=== PATIENT | male | born 1945 | race Caucasian/White ===

== ENCOUNTER 2019-03-09 06:29 | Inpatient (IN) ==
--- NOTE | 2019-02-16 14:08 | PAT Medication Instructions ---
Medication Instructions Date of Service February 16, 2019 Home Medications carvedilol 3.125 mg PO BID furosemide 40 mg PO NEEDED tramadol-acetaminophen 1 - 2 tab PO Q6H NEEDED DO NOT take the morning of surgery furosemide 40 mg PO NEEDED Take morning of surgery With a small sip of water, OTHERWISE NOTHING TO EAT OR DRINK AFTER MIDNIGHT: carvedilol 3.125 mg PO BID tramadol-acetaminophen 1 - 2 tab PO Q6H NEEDED (if needed; STOP four hours before surgery) Take evening before surgery carvedilol 3.125 mg PO BID tramadol-acetaminophen 1 - 2 tab PO Q6H NEEDED (if needed) Other Notes If you have any questions please call us at [phone] or [phone] or [phone] or [phone]
--- NOTE | 2019-02-16 14:17 | Anesthesiology Consultation ---
Date of Service February 16, 2019 Assessment & Plan (1) Encounter for pre-operative examination: -No previous anesthesia records available -Patient had EKG for PAT and was found to be in new onset A. Fib. Was already rate controlled at 75bpm and is on a beta ted, but is not anticoagulated. 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 Dr. Roe's office was contacted and they asked that patient go to the ER for further evaluation and then come to his appointment tomorrow. Patient was agreeable to this plan. EKG was faxed to cardiology's office. Surgeon's office was notified of situation. Events report was filled out by Janessa Zhang PA-C, who had called Dr. Roe's office. Patient was seen in the ER and placed on Eliquis BID and asked to follow up with Dr. Roe's office 02/17 as scheduled for further instructions re:anticoagulation. (See below) - Patient was noted to have LLE cellulitis at PCP visit on 03/04. Patient was started on Cephalexin and cleared for surgery. This will need to be evaluated morning of surgery. Chart Review Chart Review: Acceptable Risk for Surgery and Patient seen in Pre Admission Testing Consults Requested medical & cardiac (Dr. Roe (02/17) & Dr. Macias (03/04)) Patient was seen by cardiology on 02/17 for new onset a. fib and cardiac pre- operative evaluation. Patient had a negative pharmacologic stress test on 02/24 for further evaluation and it was also noted that he remained in a. fib. Patient is opting to proceed with surgery and cardio is agreeable and plans for cardioversion in April. Patient is placed on ASA daily and asked "Please re-institute Eliquis therapy as soon as safe postoperatively." They also recommended that he continue his beta ted throughout perioperative period. Patient was seen by PCP's office on 03/04 for preoperative evaluation. Per note from this visit, "Patient cleared to proceed with scheduled orthopedic procedure with Dr. Hernandez. Medical problems stable. Teaching & Discussion Pre-Anesthesia Teaching/Discussion Notes: Instructed NPO after midnight before s urgery, except medications with 15 cc of water. Medication instructions provided according to the PAT guidelines. History Surgery Operation Date: 03/09/19 07:15 Proposed Procedures p Right Anterior Total Hip Arthroplasty - Jordan Hernandez, Height/Weight Height: 6 ft 1 in Weight: 111.8 kg Allergies Allergy/AdvReac Type Severity Reaction Status Date / Time Sulfa (Sulfonamide Allergy Mild swelling Verified 02/16/19 18:12 Antibiotics) at site Medications Home Medications Medication Instructions Recorded Confirmed Last Taken carvedilol 3.125 mg PO BID 02/15/19 02/16/19 02/16/19 furosemide 40 mg PO UD PRN 02/15/19 02/16/19 02/15/19 tramadol-acetaminophen 1 - 2 tab PO Q6H PRN 02/15/19 02/16/19 02/16/19 Past Medical History Medical History Aorta aneurysm x [address] Neida Roe (02/17 for clearance for surgery) takes carvediolol Hearing deficit Heartburn ocas Osteoarthritis Exercise / Class Metabolic Activity III < 4 Walking/Shop/Light housework (Limited due to hip pain. Does walk around as much as possible. Able to climb stairs one at a time. Denies CP or SOB. ) Past Surgical History Surgical History Hx of colonoscopy x 3 Past Anesthesia History No Hx of Anesthesia Complications and No Family Hx of Anesthesia Complications History of PONV No Hx of PONV and No Hx of Motion Sickness Social History Smoking Status: Never smoker Do You Dip or Chew Tobacco: No Hx Alcohol Use: Yes alcohol intake frequency: holidays/special occasions only Hx Substance Use: No Review of Systems Patient denies chest pain, shortness of breath, dyspnea on exertion, cough, wheezing, palpitations. +Joint Pain (Hip, right knee, hands) +Acid Reflux (very rare - Takes TUMS) Physical Exam Vital Signs BP: 128/80 P: 83 R: 16 T: 98.5 SPO2: 97% on RA Constitutional + obese ENMT Mouth: + dentures (Full set upper and lower) and + edentulous Thyromental Distance: > or= 3.5 Finger Breadths (4) Mallampati Class: II Bilateral hearing aides Neck normal visual inspection and trachea midline; neck extension not limited Respiratory normal respiratory effort Auscultation: lungs clear to auscultation bilaterally Cardiovascular Rate/Rhythm: + abnormal rate and + abnormal rhythm Heart Sounds: no murmur Vessels: no carotid bruit Irregularly, irregular rate and rhythm Neurologic moves all extremities Psychiatric Orientation: alert and oriented x 3 Testing Laboratory Results 02/16/19 15:00 02/16/19 15:00 PT 11.3 Seconds (9.0-12.0) 02/16/19 15:00 INR 1.1 (0.9-1.1) 02/16/19 15:00 APTT 26.1 Seconds (21.0-31.0) 02/16/19 15:00 Hemoglobin A1c 5.9 % (4.5-5.6) H 02/16/19 15:00 Urine Color Dark Yellow 02/16/19 15:00 Urine Appearance Clear (Clear) 02/16/19 15:00 Urine pH 7.5 (4.5-7.5) 02/16/19 15:00 Ur Specific Canones 1.024 (1.000-1.030) 02/16/19 15:00 Urine Protein Negative (Negative) 02/16/19 15:00 Urine Glucose (UA) Negative (Negative) 02/16/19 15:00 Urine Ketones Negative (Negative) 02/16/19 15:00 Urine Nitrite Negative (Negative) 02/16/19 15:00 Ur Leukocyte Esterase Negative (Negative) 02/16/19 15:00 Blood Type O Positive 02/16/19 15:00 Antibody Screen NEGATIVE 02/16/19 15:00 Electrocardiogram Date: 02/16/19 Findings: + AFIB @ (75) Left axis deviation Incomplete right bundle branch block Minimal voltage criteria for LVH, may be normal variant Nonspecific T wave abnormality Chest X-Ray Date: 02/16/19 FINDINGS: Atherosclerosis of the aortic arch. Cardiac silhouette enlarged. Mild pulmonary vascular prominence. No focal opacity. No large effusion or pneumothorax. Osseous structures normal. IMPRESSION: 1. Cardiomegaly with mild if any volume overload. No advanced congestive change or chino pulmonary edema. Echocardiogram Date: 03/20/17 EF: 55-60% Normal left ventricular wall motion and EF estimated in the range of 55-60% Dilatation of the left atrium Left ventricular hypertrophy Dense sclerotic changes involving both aortic and mitral valve leaflets as well as mitral annular calcification Moderate aortic valvular insufficiency Aneurysmal dilatation of the ascending aorta Stress Test Date: 02/24/19 Type: nuclear (Lexiscan) Resting EF: 46% Normal myocardial perfusion SPECT images without evidence for pharmacologically induced ischemia Low normal LVEF post stress estimated in the range of 42% (technically a difficult study secondary to gaiting problems in atrial fibrillation).
[2019-02-16 15:56] LABS: Basophils # (auto) 0.02 K/uL (0-0.2); Basophils % (auto) 0.4 %; Eosinophils # (auto) 0.06 K/uL (0-0.5); Eosinophils % (auto) 1.1 %; Hematocrit (blood only) 36.4 % (42-52); Hemoglobin 12.1 g/dL (14.0-18.0); Immature Granulocytes # (auto) 0.01 K/uL (0.00-0.02); Immature Granulocytes % (auto) 0.2 %; Lymphocytes % (auto) 18.1 %; Mean Corpuscular Hgb Conc 33.2 g/dL (32-36); Mean Platelet Volume 9.4 fL (7.4-10.4); Monocytes # (auto) 0.54 K/uL (0.11-0.59); Monocytes % (auto) 9.8 %; Neutrophils # (auto) 3.89 K/uL (1.4-6.5); Neutrophils % (auto) 70.4 %; Platelet Count 248 K/uL (130-400); RDW Coefficient of Variation 14.4 % (11.5-14.5); RDW Standard Deviation 46.9 fL (36.4-46.3); Red Blood Count 4.09 M/uL (4.7-6.1); White Blood Count 5.52 K/uL (4.8-10.8)
[2019-02-16 16:00] LABS: Appearance Urine Clear (Clear); Bilirubin Urine Negative (Negative); Blood Urine Negative (Negative); Color Urine Dark Yellow; Glucose Urine UA Negative (Negative); Ketones Urine Negative (Negative); Leukocyte Esterase Urine Negative (Negative); Nitrite Urine Negative (Negative); Protein Urine Negative (Negative); Specific Gravity Urine 1.024 (1.000-1.030); Urobilinogen Urine Negative (Negative); pH Urine 7.5 (4.5-7.5)
[2019-02-16 16:04] LABS: Albumin Level 3.6 gm/dl (3.4-5.0); BUN Creatinine Ratio 20.3 (10-20); Calcium 8.7 mg/dl (8.5-10.1); Creatinine Clr Calc Pharmacy 121.5 ml/min; Est GFR (Non-African American) 93.2; Potassium 3.9 mmol/L (3.5-5.1)
[2019-02-16 16:08] LABS: INR 1.1 (0.9-1.1); Partial Thromboplastin Time 26.1 Seconds (21.0-31.0); Prothrombin Time 11.3 Seconds (9.0-12.0)
[2019-02-17 05:45] LABS: Estimated Average Glucose 123 mg/dl; Hemoglobin A1C 5.9 % (4.5-5.6)
--- NOTE | 2019-03-08 13:01 | History & Physical Report ---
Date of Service March 08, 2019 Assessment & Plan (1) Degenerative joint disease of right hip: I have indicated the patient for right anterior total hip replacement. The risks, benefits and complications of surgery were explained to the patient which include but not limited to infection, acute blood loss, DVT/PE, injury to nerves, vessels, bone, soft tissue, arthrofibrosis, chronic pain, failure of the prosthesis, hip dislocation, leg length discrepancy, need for additional surgery, cardiac and pulmonary events and . The patient wished to proceed with surgery and informed consent was obtained at this time. We will plan for ASA BID post-operatively for DVT prophylaxis. Upon discharge the patient will be discharged home with home health services. Appropriate clearances by PCP and cardio were obtained. History of Present Illness Chief Complaint: Right hip pain/djd Primary Care Provider: Maulik Macias The patient is a 74 year old male who presents with complaints of severe right hip pain and DJD. The patient has failed outpatient conservative treatments to this point which included NSAIDs, IA corticosteroid injection, home exercise/walking program. The patient's pain and limited function have progressed to the point where they severely hinder their activities of daily living and they no longer tolerate exercise programs. They are requesting to proceed with total hip replacement surgery. Allergies Allergy/AdvReac Type Severity Reaction Status Date / Time Sulfa (Sulfonamide Allergy Mild swelling Verified 02/16/19 18:12 Antibiotics) at site Home Medications Home Medications Medication Instructions Recorded Confirmed Type carvedilol 3.125 mg PO BID 02/15/19 02/16/19 History furosemide 40 mg PO UD PRN 02/15/19 02/16/19 History tramadol-acetaminophen 1 - 2 tab PO Q6H PRN 02/15/19 02/16/19 History Past Med/Surg History Medical History Aorta aneurysm x [address] 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 Constitutional: WD/WN, vitals as above Eyes: PERRL, conjunctivae normal, anicteric sclerae ENMT: external ear and nose normal, oropharynx normal Neck: trachea midline, no thyromegaly Respiratory: normal respiratory effort, lungs clear to auscultation Cardiovascular: RRR, no murmur, no edema Gastrointestinal (Abdomen): normal bowel sounds, soft, nontender, no hepatosplenomegaly Musculoskeletal: no cyanosis or clubbing, extremities motor strength 5/5 Skin: no rashes, warm and dry Neurologic: patellar DTR's 2+ bilat, sensation intact Psychiatric: A+Ox3, euthymic affect Lymphatic: no cervical or axillary lymphadenopathy Results & Data Diagnostic Findings Multiple views of the hip demonstrates severe DJD with complete loss of the joint space. +osteophytes, +sclerosis, +subchondral cysts.
[~2019-03-09 06:29] MED LIST: ACETAMINOPHEN 500 MG TAB PO SCH; BUPIVACAINE 0.5 % 5 MG/1 ML PF 10ML VIAL ONE; CEFAZOLIN 2000MG 2,000 MG/15 ML SYR IV SCH; CeleBREX 200 MG CAP PO SCH; FAMOTIDINE 20 MG TAB PO SCH; GABAPENTIN 300 MG CAP PO SCH; LR 500ML BOLUS, THEN 15ML/HR IV SCH; METOCLOPRAMIDE HCL 10 MG TABLET PO SCH; ROPIVACAINE 0.5% HCL/PF 150 MG, BUPIVACAINE 0.5% MPF 30 ML, EPINEPHrine 30MG/30ML (OR U... INSTIL SCH; TRANEXAMIC ACID 1,000 MG **IV Pre-op IV SCH; dexAMETHasone 4 MG TAB PO SCH
[2019-03-09] MEDS ORDERED: TRANEXAMIC ACID 1,000 MG **IV Intra-op IV SCH (06:30)
--- NOTE | 2019-03-09 07:10 | History & Physical Bridge Note ---
Date of Service March 09, 2019 History & Physical Bridge Note I have examined the patient, reviewed the History & Physical and in the interval since the performance of the History & Physical I have noted the following changes of clinical significance: no changes noted
[2019-03-09] MEDS ORDERED: ORTHO JOINT ANESTHETIC ONE (09:07)
[2019-03-09] MEDS ORDERED: BACITRACIN INJ 50,000 UNIT VIAL ONE (09:07)
[2019-03-09] MEDS ORDERED: MIDAZOLAM HCL 1 MG/ML 2ML VIAL ONE ×2 (09:15)
[2019-03-09] MEDS ORDERED: PROPOFOL IV EMULSION 10 MG/ML 20 ML VIAL IV ONE (09:45)
[2019-03-09] MEDS ORDERED: KETAMINE HCL INJ 50 MG/ML 10 ML VIAL ONE (09:46)
[2019-03-09] MEDS ORDERED: fentaNYL citrate 100 MCG/2 ML VIAL ONE (10:19)
--- NOTE | 2019-03-09 11:27 | Post Operative Brief Note ---
Immediate Post Op Note v1 Date of Surgery March 09, 2019 Pre & Post Diagnosis Operation Date: 03/09/19 09:15 Pre-Op Diagnosis: RIGHT HIP OSTEOARTHRITIS Post-Op Diagnosis: RIGHT HIP OSTEOARTHRITIS Procedure Operation Date: 03/09/19 09:15 Actual Procedures p Right Anterior Total Hip Arthroplasty(Right) - Jordan Hernandez DO Surgeon Jordan Hernandez DO Manager Engagement Gabriel Ahmadi Estimated Blood Loss 125 Findings Consistent with Post-Op Diagnosis Fluids 800 cc LR Specimens femoral head Anesthesia Type General Complications none Disposition Disposition: Recovery Room Overlapping Procedure I was present for: the critical portions of procedure. I was immediately available: during the entire case. Back up surgeon: was not required during procedure.
--- NOTE | 2019-03-09 11:48 | Operative Report ---
Post Operative Report Pre & Post Diagnosis Operation Date: 03/09/19 09:15 Pre-Op Diagnosis: RIGHT HIP OSTEOARTHRITIS Post-Op Diagnosis: RIGHT HIP OSTEOARTHRITIS Procedure Operation Date: 03/09/19 09:15 Actual Procedures p Right Anterior Total Hip Arthroplasty(Right) - Jordan Hernandez DO Surgeon Jordan Hernandez DO Clinic Office Manager Gabriel Ahmadi Estimated Blood Loss 125 Findings Consistent with Post-Op Diagnosis Fluids 800 cc LR Specimens Femoral head Anesthesia Type General Complications none Disposition Disposition: Recovery Room Indications The patient is a 74-year-old male who presents with severe progressive right hip DJD who has failed outpatient conservative treatments. I indicated the patient for a anterior total hip replacement and the risks and benefits were explained in detail which include but not limited to infection, bleeding, blood clot, damage to surrounding bone, nerves, vessels, soft tissue, hip dislocation, failure of the prosthesis, leg length discrepancy, need for additional surgery and . The patient agreed to proceed with replacement of the hip and informed consent was obtained. Appropriate clearances were obtained. Description of Procedure COMPONENTS USED: [employer]ña [employer]ph[employer] hip system: Acetabulum size 60, femur size 12 high offset, femoral head 36+4, liner 6036, acetabular screw 25 mm x 1. DESCRIPTION OF PROCEDURE: Following satisfactory general anesthesia, the patient was placed supine on the OR table. The left leg was placed in the well leg leija and the right leg in the traction device. The right leg was prepared with ChloraPrep and draped sterilely. A surgical timeout was performed, patient identified and site trae verified. Appropriate antibiotics were given. A standard anterior approach in the interval between the sartorius and tensor muscles was performed. Dissection was carried down through subcutaneous tissues. Electrocautery was utilized for hemostasis. Circumflex femoral vessels were identified, tied and ligated. The anterior capsular fat pad was removed and the capsulotomy was performed revealing the arthritic femoral neck and head. A femoral neck cut was made with reciprocating saw and the bone fragments removed. The acetabular self-retraining retractor was placed. Acetabular reaming was completed under fluoroscopic guidance, a 6 shell was imp acted into an anatomic position and secured with a dome screw. Local anesthetic was placed and following irrigation, the polyethylene liner was placed. The femur was placed into position of external rotation, extension and adduction. Femoral canal was prepared up to the size 12 high offset. Trial reduction with a +4 neck length head showed good soft tissue tension, leg lengths restored, and good fit and fill of the proximal canal using fluoroscopic landmarks. The hip was dislocated. The trial component was removed. The final implant was placed. The hip was irrigated with sterile saline solution and reduced. A Betadine soak was performed. After 3 minutes, the hip was once more irrigated with copious sterile saline solution with bacitracin. Cyndie-incisional soft tissue was injected utilizing [place] [facility] which includes a combination of Ropivicaine 0.5% 150mg, Bupivicaine 0.5%/Epinephrine 1:200,000 30ml, Toradol 30mg, Dexamethasone 4mg, Ketamine 10mg, Clonidine 100mcg and NSS 30ml solution. The capsule was then closed with 1-0 Vicryl interrupted figure of eight sutures. The fascia was closed with a running suture of #1 Vicryl, the subcutaneous tissues with 2-0 Vicryl and the skin with a running subcuticular stitch of 3-0 V-Loc. Dermabond prineo and a dry dressing were applied. The patient tolerated the procedure well and was transported to PACU in stable condition. Due to the complex nature of the procedure, the entire surgery was performed with the operational assistance of Gabriel Ahmadi PA-C. The bioinformatics assistant, under direct supervision, was involved in the actual performance of all aspects of the surgical procedure including patient positioning, hemostasis, tissue retraction, instrument management and wound closure. I attest to the content of the Intraoperative Record and any orders documented therein. Any exceptions are noted below.
--- NOTE | 2019-03-09 12:02 | Fluoroscopy Report ---
FL hip RT 1V CLINICAL HISTORY: RT ANTERIOR TOTAL HIP COMPARISON STUDY: None. FLUOROSCOPY TIME: 1 minute and 6 seconds. FINDINGS: 2 fluoroscopic spot images of the right hip demonstrate a right total hip arthroplasty. The hardware is intact. No fracture or dislocation. IMPRESSION: Fluoroscopy provided for right total hip arthroplasty. Electronically signed by: Aj Richardson M.D. 03/09/2019 12:01 PM
--- NOTE | 2019-03-09 13:13 | XRay Report ---
XR hip 1V RT w pelvis HISTORY: 74 years-old Male IN PACU - A/P PELVIS and LATERAL HIP right hip total joint arthroplasty. History of degenerative joint disease COMPARISON: Fluoroscopic images of the right hip 03/09/2019 TECHNIQUE: AP view of the pelvis with AP and crosstable lateral view of the right hip FINDINGS: Mild osteoarthritis about the left hip. Right hip total joint arthroplasty is noted with satisfactory alignment. There is no acute fracture, dislocation or opaque foreign body identified. Expected posts urgical soft tissue swelling and deep tissue air lateral to the right hip. Possible soft tissue calci fications measure up to 1.2 cm lateral to the greater trochanter. IMPRESSION: Satisfactory alignment of the right hip total joint arthroplasty. The above report was generated using voice recognition software. It may contain grammatical, syntax o r spelling errors. Electronically signed by: Ez Sadler M.D. 03/09/2019 1:12 PM
[2019-03-09] MEDS ORDERED: KETOROLAC TROMETHAMINE 15 MG/ML VIAL IV SCH (13:42)
[2019-03-09] MEDS ORDERED: FUROSEMIDE 40 MG TAB PO PRN (13:42)
[2019-03-09] MEDS ORDERED: OXYCODONE HCL IR 5 MG TAB (IMMEDIATE RELEASE) PO PRN (13:42)
[2019-03-09] MEDS ORDERED: BISACODYL 10 MG SUPP PR PRN (13:42)
[2019-03-09] MEDS ORDERED: NALOXONE HCL 0.4 MG/1 ML VIAL/CARP IV PRN (13:42)
[2019-03-09] MEDS ORDERED: MAGNESIUM HYDROXIDE SUSP 30 ML UDC PO PRN (13:42)
[2019-03-09] MEDS ORDERED: METOCLOPRAMIDE HCL INJ 5 MG/ML 2 ML VIAL IV PRN (13:42)
[2019-03-09] MEDS ORDERED: HYDROmorphone INJ 0.5 MG/0.5 ML SYR IV PRN (13:42)
[2019-03-09] MEDS ORDERED: ONDANSETRON INJ 2 MG/ML 2 ML VIAL IV PRN (13:42)
[2019-03-09] MEDS ORDERED: ePHEDrine sulfate 50 MG/ML AMP IV PRN (14:17)
[2019-03-09] MEDS ORDERED: ATROPINE SULFATE 0.1 MG/ML 10ML SYR IV PRN (14:17)
--- NOTE | 2019-03-09 14:18 | Anesthesiology Progress Note ---
Date of Service March 09, 2019 Anesthesia Post Procedure Vital Signs Vital Signs: Temp Pulse Pulse Resp BP BP Pulse Ox 03/09/19 14:02 36.3 C L 80 18 127/80 95 03/09/19 13:30 36.4 C L 76 16 115/78 96 03/09/19 13:10 36.5 C 82 15 110/78 96 03/09/19 13:00 77 14 130/80 97 03/09/19 12:50 76 17 110/71 96 03/09/19 12:40 70 15 113/73 96 03/09/19 12:30 78 18 127/71 96 03/09/19 12:20 78 18 127/71 96 03/09/19 12:10 84 15 110/69 95 03/09/19 12:00 36.1 C L 78 20 116/68 95 03/09/19 07:11 36.5 C 86 20 174/97 H 97 Pain Intensity Right Hip: Pain Intensity: 0 Transfer of Care Handoff Completed per policy Notes Mental Status: alert / awake / arousable and participated in evaluation Patient Amnestic to Procedure: Yes Nausea / Vomiting: adequately controlled Pain: adequately controlled Airway Patency, RR, SpO2: stable & adequate BP & HR: stable & adequate Hydration State: stable & adequate Neuraxial Anesthesia: was administered and sensory block is resolving Anesthetic Complications: no major complications apparent
[2019-03-09] MEDS: ACETAMINOPHEN 500 MG TAB PO SCH ×2 (14:21→21:55)
[2019-03-09] MEDS: SODIUM CHLORIDE 0.9% 1000ML 1,000 ML IV SCH ×2 (16:37→23:14)
[2019-03-09] MEDS: CEFAZOLIN 2000MG 2,000 MG/15 ML SYR IV SCH (17:57)
[2019-03-09] MEDS: KETOROLAC TROMETHAMINE 15 MG/ML VIAL IV SCH ×2 (17:58→23:14)
--- NOTE | 2019-03-09 18:15 | Orthopedic Progress Note ---
Date of Service March 09, 2019 Assessment & Plan (1) Degenerative joint disease of right hip: s/p R anterior HUMBERTO -ancef x 24 -DVT ppx: SCDs, TEDs, ASA BID -WBAT RLE -PT/OT -XR R hip demonstrates a well aligned well fixed prosthesis without fracture/dislocation -am labs -DC planning - home with HH Subjective Post Operative Progress Note Patient seen sitting up in bed, comfortable, denies complaints, pain well controlled, no acute issues. Review of Systems Review of Systems: All systems reviewed & are unremarkable except as noted in HPI & below Constitutional: as per Subjective / HPI Physical Exam Physical Exam: RLE NVSI +EHL/FHL/TA/GS SILT grossly, +2 DP pulse, compartments soft NT, dressing cdi. Constitutional: WD/WN, vitals as above Results & Data Vital Signs (Past 12 Hours) Vital Signs Temp Pulse Pulse Resp BP BP Pulse Ox 03/09/19 16:28 36.7 C 89 16 109/71 94 03/09/19 15:26 36.3 C L 87 16 112/75 97 03/09/19 14:57 36.6 C 87 18 123/69 98 03/09/19 14:02 36.3 C L 80 18 127/80 95 03/09/19 13:30 36.4 C L 76 16 115/78 96 03/09/19 13:10 36.5 C 82 15 110/78 96 03/09/19 13:00 77 14 130/80 97 03/09/19 12:50 76 17 110/71 96 03/09/19 12:40 70 15 113/73 96 03/09/19 12:30 78 18 127/71 96 03/09/19 12:20 78 18 127/71 96 03/09/19 12:10 84 15 110/69 95 03/09/19 12:00 36.1 C L 78 20 116/68 95 03/09/19 07:11 36.5 C 86 20 174/97 H 97
[2019-03-09] MEDS ORDERED: SENNA 8.6 MG TAB PO SCH (21:00)
[2019-03-09] MEDS: DOCUSATE SODIUM 100 MG CAP PO SCH (21:55)
[2019-03-09] MEDS: CARVEDILOL 3.125 MG TAB PO SCH (21:55)
[2019-03-10] MEDS: CEFAZOLIN 2000MG 2,000 MG/15 ML SYR IV SCH (02:52)
[2019-03-10] MEDS: ACETAMINOPHEN 500 MG TAB PO SCH ×2 (05:51→14:10)
[2019-03-10] MEDS: KETOROLAC TROMETHAMINE 15 MG/ML VIAL IV SCH ×2 (05:52→11:50)
[2019-03-10 07:08] LABS: Hematocrit (blood only) 30.5 % (42-52); Immature Granulocytes # (auto) 0.03 K/uL (0.00-0.02); Immature Granulocytes % (auto) 0.3 %; Lymphocytes # (auto) 0.73 K/uL (1.2-3.4); Lymphocytes % (auto) 6.8 %; Mean Corpuscular Hgb Conc 32.8 g/dL (32-36); Mean Corpuscular Volume 87.4 fL (80-100); Mean Platelet Volume 9.2 fL (7.4-10.4); Monocytes # (auto) 1.05 K/uL (0.11-0.59); Monocytes % (auto) 9.8 %; Neutrophils # (auto) 8.88 K/uL (1.4-6.5); Neutrophils % (auto) 83.1 %; Platelet Count 201 K/uL (130-400); RDW Coefficient of Variation 14.3 % (11.5-14.5); RDW Standard Deviation 45.8 fL (36.4-46.3); Red Blood Count 3.49 M/uL (4.7-6.1); White Blood Count 10.69 K/uL (4.8-10.8)
[2019-03-10 07:36] LABS: BUN Creatinine Ratio 20.7 (10-20); Calcium 8.1 mg/dl (8.5-10.1); Creatinine Clr Calc Pharmacy 102.4 ml/min; Est GFR (African American) 100.9; Est GFR (Non-African American) 87.1; Potassium 4.1 mmol/L (3.5-5.1)
[2019-03-10] MEDS: DOCUSATE SODIUM 100 MG CAP PO SCH (08:43)
[2019-03-10] MEDS: CARVEDILOL 3.125 MG TAB PO SCH (08:43)
[2019-03-10] MEDS ORDERED: ASPIRIN 81 MG ECTAB PO SCH (09:00)
[2019-03-10] MEDS ORDERED: ASPIRIN 325 MG ECTAB PO SCH (09:00)
[2019-03-10] MEDS ORDERED: MULTIVITAMIN TAB PO SCH (09:00)
--- NOTE | 2019-03-10 10:01 | Anesthesiology Progress Note ---
Date of Service March 10, 2019 Anesthesia Post Procedure Vital Signs Vital Signs: Temp Pulse Pulse Pulse Resp BP Pulse Ox 03/10/19 07:40 36.8 C 77 18 100/66 96 03/10/19 02:15 36.9 C 94 H 16 110/65 94 03/09/19 23:43 36.8 C 88 16 103/75 91 03/09/19 20:00 36.7 C 87 16 120/67 94 03/09/19 16:28 36.7 C 89 16 109/71 94 03/09/19 15:26 36.3 C L 87 16 112/75 97 03/09/19 14:57 36.6 C 87 18 123/69 98 03/09/19 14:02 36.3 C L 80 18 127/80 95 03/09/19 13:30 36.4 C L 76 16 115/78 96 03/09/19 13:10 36.5 C 82 15 110/78 96 03/09/19 13:00 77 14 130/80 97 03/09/19 12:50 76 17 110/71 96 03/09/19 12:40 70 15 113/73 96 03/09/19 12:30 78 18 127/71 96 03/09/19 12:20 78 18 127/71 96 03/09/19 12:10 84 15 110/69 95 03/09/19 12:00 36.1 C L 78 20 116/68 95 Pain Intensity Right Hip: Pain Intensity: 0 Notes Mental Status: alert / awake / arousable and participated in evaluation Nausea / Vomiting: adequately controlled Pain: adequately controlled Airway Patency, RR, SpO2: stable & adequate BP & HR: stable & adequate Hydration State: stable & adequate Neuraxial Anesthesia: sensory block resolved
--- NOTE | 2019-03-10 14:10 | Orthopedic Progress Note ---
Date of Service March 10, 2019 Assessment & Plan (1) Degenerative joint disease of right hip: s/p R anterior HUMBERTO POD#1 -ancef x 24 -DVT ppx: SCDs, TEDs, ASA BID, changed to 81mg BID due to increased eccymosis -WBAT RLE -PT/OT -XR R hip demonstrates a well aligned well fixed prosthesis without fracture/dislocation -am labs - hgb 10.0 -DC planning - home with HH Subjective Post Operative Progress Note Patient seen sitting up in bed, comfortable, denies complaints, pain well controlled, no acute issues. Review of Systems Review of Systems: All systems reviewed & are unremarkable except as noted in HPI & below Constitutional: as per Subjective / HPI Physical Exam Physical Exam: RLE NVSI +EHL/FHL/TA/GS SILT grossly, +2 DP pulse, compartments soft NT, dressing cdi. Moderation ecchymosis anterior and lateral thigh, no palpable hematoma. Constitutional: WD/WN, vitals as above Results & Data Vital Signs (Past 12 Hours) Vital Signs Temp Pulse Resp BP Pulse Ox 03/10/19 11:53 36.7 C 89 18 109/64 97 03/10/19 07:40 36.8 C 77 18 100/66 96 03/10/19 02:15 36.9 C 94 H 16 110/65 94 Laboratory Results 03/10/19 03/10/19 03/10/19 Range/Units 06:52 06:52 06:52 WBC 10.69 (4.8-10.8) K/uL RBC 3.49 L (4.7-6.1) M/uL Hgb 10.0 L (14.0-18.0) g/dL Hct 30.5 L (42-52) % MCV 87.4 (80-100) fL MCH 28.7 (25-34) pg MCHC 32.8 (32-36) g/dL RDW Std Deviation 45.8 (36.4-46.3) fL RDW Coeff of Maury 14.3 (11.5-14.5) % Plt Count 201 (130-400) K/uL MPV 9.2 (7.4-10.4) fL Immature Gran % (Auto) 0.3 % Neut % (Auto) 83.1 % Lymph % (Auto) 6.8 % [place] % (Auto) 9.8 % Eos % (Auto) 0.0 % Baso % (Auto) 0.0 % Immature Gran # (Auto) 0.03 H (0.00-0.02) K/uL Neut # (Auto) 8.88 H (1.4-6.5) K/uL Lymph # (Auto) 0.73 L (1.2-3.4) K/uL [place] # (Auto) 1.05 H (0.11-0.59) K/uL Eos # (Auto) 0.00 (0-0.5) K/uL Baso # (Auto) 0.00 (0-0.2) K/uL Sodium 140 (136-145) mmol/L Potassium 4.1 (3.5-5.1) mmol/L Chloride 109 H (98-107) mmol/L Carbon Dioxide 26 (21-32) mmol/L Anion Gap 5.0 (3-11) BUN 18 (7-18) mg/dl Creatinine 0.85 (0.6-1.4) mg/dl Est Cr Clr Drug Dosing 102.4 ml/min Est GFR ( Amer) 100.9 Est GFR (Non-Af Amer) 87.1 BUN/Creatinine Ratio 20.7 H (10-20) Glucose 128 H (70-99) mg/dl Calcium 8.1 L (8.5-10.1) mg/dl Hepatitis C Ab Screen Neg (Neg)
--- NOTE | 2019-03-10 21:32 | Discharge Summary ---
Date of Service March 10, 2019 Admission HPI Per Admitting Provider The patient is a 74 year old male who presents with complaints of severe right hip pain and DJD. The patient has failed outpatient conservative treatments to this point which included NSAIDs, IA corticosteroid injection, home exercise/walking program. The patient's pain and limited function have progressed to the point where they severely hinder their activities of daily living and they no longer tolerate exercise programs. They are requesting to proceed with total hip replacement surgery. Principal Diagnosis Right anterior total hip replacement Discharge Exam RLE NVSI +EHL/FHL/TA/GS SILT grossly, +2 DP pulse, compartments soft NT, dressing cdi. +anterolateral thigh ecchymosis Constitutional WD/WN, vitals as above Discharge Data Allergies Allergy/AdvReac Type Severity Reaction Status Date / Time Sulfa (Sulfonamide Allergy Mild swelling Verified 03/09/19 07:14 Antibiotics) at site Consultations 03/10/19 08:00 Consult Case Management - Discharge Planning Routine Procedures Performed Operation Date: 03/09/19 09:15 Actual Procedures p Right Anterior Total Hip Arthroplasty(Right) - Jordan Hernandez DO Ordered Studies 03/09/19 09:15 FL fluoroscopy <1hr Routine FL hip RT 1V Routine Hospital Course (1) Degenerative joint disease of right hip: The patient is a 74 -year-old male who presents with long standing history of severe right hip DJD and failed outpatient conservative treatments including NSAIDs, bracing, injections and home walking/exercise program. The patient's symptoms have progressed to the point where it has been difficult to perform even normal activities of daily living. I indicated the patient for a right anterior total hip arthroplasty, the risks, benefits and complications of the procedure include but not limited to infection, bleeding, damage to bone, nerves, vessels, surrounding soft tissue, may develop blood clots, loss of function, leg length discrepancy, dislocation, failure of the components, loosening of the components, the need for additional surgery and . The patient wished to proceed with surgery at this time and informed consent was obtained. Hospital Course: On 03/09/19 the patient was taken to the operating room, adequate anesthesia administered and underwent a right anterior total hip arthroplasty. The patient tolerated the procedure well and was taken to the PACU in stable condition. Post-operatively the patient was started on a DVT ppx medication and given appropriate IV antibiotics. Consults were placed to physical therapy, occupational therapy and case management. On POD#1, the patient did well overnight and their pain was well controlled. Labs were drawn and the Hgb was 10.0. The patient progressed well with PT. Dressings were changed at this time and the incision was clean, dry and intact. The patients hospital stay was relatively uneventful and they were deemed stable by the orthopedic team and consultants to be discharged home with HH on 03/10/19. Discharge Instructions: Upon discharge the patient may weight bear as tolerates through their operative extremity. They were instructed to keep the incision clean and dry at all times. The patient may shower but should not submerge the incision, avoid bathing, pools and hot tubes. The patient was given a script for pain medication and should take as instructed. The patient was given a script for DVT ppx ASA 81mg BID and should take as directed. The patient was instructed to not drive or travel for long distances until cleared to do so. If the patient develops any symptoms of fevers, chills, nausea, vomiting, increased redness, swelling, pain or drainage from the surgical site, they should notify the office and/or proceed to the nearest emergency room. The patient should follow up in 10-14 days after surgery for their routine post-operative follow-up appointment and should call the office to confirm the date and time. s/p R anterior HUMBERTO POD#1 -ancef x 24 -DVT ppx: SCDs, TEDs, ASA BID, changed to 81mg BID due to increased eccymosis -WBAT RLE -PT/OT -XR R hip demonstrates a well aligned well fixed prosthesis without fracture/dislocation -am labs - hgb 10.0 -DC planning - home with HH Total Time Total Time Spent Total Time Spent (In Minutes): 30 minutes Total Time Includes: Examination of the Patient, Discharge Planning, Medication Reconciliation and Communication With Other Providers Discharge Plan Discharge Items Patient Disposition: Home - Home Health Services Reason For Visit: RIGHT HIP OSTEOARTHRITIS Discharge Diagnosis: Right anterior total hip replacement Discharge Goals: Decrease discomfort, Improve function, Increase independence and Therapeutic intervention Activity: Per 'Additional Instructions' section Lifting: Wait until after follow-up appointment Bathing Comment: No bathing, pools or hot tubs Sexual Activity: Wait until after follow-up appointment Exercise/Sports: Wait until after follow-up appointment Driving/Machine Use Comment: No driving till cleared by your surgeon Weightbearing: Right weightbearing Non-emergency contact: Primary Care Provider and Surgeon Call non-emergency contact if: you have any medication questions, your symptoms worsen, your pain is not controlled, your pain is worsening, your pain is unusual for you, your pain is concerning for you, you have a fever, your temperature is above 101, your wound has increased redness, your wound has increased drainage and your wound pain has increased Follow-up/Referrals: Maulik Macias [Primary Care Provider] - Diet: Regular Addtl Provider Instructions: ACTIVITY RECOMMENDATIONS: SELF CARE INSTRUCTIONS AFTER TOTAL HIP REPLACEMENT : Direct Anterior Approach Until the incision and soft tissues around your hip have healed, there is a possibility that the hip prosthesis could dislocate. A. Hip flexion ( Up & Down out of chair or steps ) may be difficult. This is normal. B. Numbness in front of the thigh is also normal for a few weeks. C. Use hand rails when walking on stairs. D. Wear low heeled shoes with non-slip soles. E. Be sure that your floors are free of things that could trip you - throw rugs, electrical cords, small objects. Avoid wet and waxed floors, especially with crutches and canes. F. Try to walk several times a day with rest periods between. G. Continue with all the exercises taught to you in the hospital. Again, make walking a part of your daily routine. SPECIAL CARE INSTRUCTIONS: VERY IMPORTANT TO READ AND REVIEW A. You may still be at risk for phlebitis and blood clots. 1. Wear surgical stockings (HENRRY hose) for 2 weeks after surgery to improve circulation and reduce swelling. 2. Take Aspirin 81mg twice daily for 4 weeks or as directed by your doctor. This is your blood thinner. 3. High risk patients may be prescribed a stronger blood thinner if necessary. 4. If you are on Coumadin normally, your family doctor/entry level account executive should monitor your blood work. Expect a phone call the day of or the day after bloodwork is drawn to adjust your dosage. B. You must take antibiotics before having dental work, bladder, bowel and other surgery. Your doctor will provide you with a permanent card to carry ai cribing precautions. C. Call [facility] if you have a fever, redness or swelling around the incision, cloudy drainage from incision, or sudden increase in pain in your hip, not relieved by your regular pain medication. D. Please call the office at if you have any concerns or ques tions about your operation or recovery. * YOU MAY SHOWER, NO TUB BATHS UNTIL CLEARED BY YOUR DOCTOR. - Keep an extra close eye on the top portion of your incision. Be sure to keep clean & dry. * WEAR HENRRY HOSE 20 HOURS PER DAY FOR 2 WEEKS. * YOU MAY PROGRESS FROM A WALKER, TO A CANE, TO INDEPENDENT AT YOUR OWN PACE. * MOST PATIENTS WILL HAVE HOME NURSING FOR THERAPY. IF YOU DECIDE TO DO OUTPATIENT PHYSICAL THERAPY, PLEASE SCHEDULE THIS 3 TIMES PER WEEK. * DERMABOND Prineo- This is a mesh tape dressing that is covered with glue. It should remain in place until the incision is properly healed, usually 10-14 days. This dressing is designed to naturally slough off. You may trim the excess mesh tape as it peels off. Incision may be briefly wet in a shower. Dry immediately by blotting with a clean, dry towel. Do not bath or swim until instructed by your doctor. Do not scratch, rub, or pick at the dressing. Do not apply any topical ointments or lotions until dressing is completely removed and/or instructed by your doctor. There may be a small piece of suture material at one end of your incision. Do not pull or trim this. If it is bothersome or catching on clothing, you may cover it with a band-aid. FOLLOW UP VISIT: If appointment is not already scheduled: Please call [facility] to make a follow-up appointment for 2 weeks after your surgery at . Prescriptions: New acetaminophen [Tylenol Extra Strength] 500 mg Tablet 1,000 mg PO Q8 PRN (Reason: pain and/or fever) Qty: 90 RF: 0 oxycodone 5 mg Tablet 5 mg PO Q6H MDD 6 tabs PRN (Reason: pain) Qty: 30 RF: 0 sennosides [Senokot] 8.6 mg Tablet 17.2 mg PO HS PRN (Reason: constipation) Qty: 28 RF: 0 aspirin 325 mg Tablet,Delayed Release (Dr/Ec) 81 mg PO BID 30 Days Qty: 15 RF: 0 Continued furosemide 40 mg Tablet 40 mg PO UD PRN (Reason: swelling) RF: 0 carvedilol 3.125 mg Tablet 3.125 mg PO BID RF: 0 Discontinued tramadol-acetaminophen 37.5-325 mg Tablet 1 - 2 tab PO Q6H PRN (Reason: Pain) RF: 0 Stand-Alone Forms: [facility], [facility] Discharge Orders: Discharge Order (Routine); Ordered 03/10/19 Ordered By: Jordan Hernandez Admission Data Admit Date/Time: 03/09/19 12:09 Attending Provider: Jordan Hernandez Admit Provider: Jordan Hernandez Primary Care Provider: Maulik Macias Service: Surgical Services Other Interventions: Discharge Summary Assessment (RN) Last Done: 03/10/19 14:24 DC Date/Time DO NOT enter until pt leaves facility: 03/10/19 15:55
== END 2019-03-10 15:55 | disposition home health service (06) | DRG 470 ==
LOC: ASU 06:29 → 3E 12:09